=== PATIENT | female | born 1930 | race Caucasian/White ===

== ENCOUNTER 2018-08-21 18:49 | Observation (INO) | payer MEDICARE, OTHER ==
[~2018-08-21] VITALS: Ht 149.9 cm; Wt 70.4 kg
[~2018-08-21 18:49] MED LIST: CELEBREX100 MG PO; HYDROCHLOROTHIA25 MG PO; LOTREL 10-20 M1 EACH PO; LOW DOSE ASPIRI81 MG PO; OMEPRAZOLE40 MG PO; SYNTHROID PO; THERAGRAN-M PR1 EAC1 PO
[2018-08-21] MEDS ORDERED: NIFEDIPINE 10 MG CAP PO NR (20:00)
[2018-08-21 20:21] LABS: BASOPHILS # (AUTO) 0.1 (0.0-0.1); BASOPHILS % 0.4 % (0.0-1.0); EOSINOPHILS # (AUTO) 0.1 (0.0-0.4); EOSINOPHILS % 0.8 % (0.0-6.0); HEMATOCRIT 36.6 % (34.2-44.1); LYMPHOCYTES # (AUTO) 2.1 (1.0-3.2); MEAN CORPUSCULAR HEMOGLOBIN 27.5 pg (28-32); MEAN CORPUSCULAR HGB CONC 32.8 g/dL (31-35); MEAN CORPUSCULAR VOLUME 83.8 fL (81-99); MONOCYTES # (AUTO) 0.8 (0.2-0.8); MONOCYTES % 7.1 % (4.4-11.3); NEUTROPHILS # (AUTO) 8.5 (2.1-6.9); NEUTROPHILS % 73.3 % (38.7-80.0); PLATELET COUNT 257 x10e3/uL (140-360); RED BLOOD COUNT 4.37 x10e6/uL (3.6-5.1); RED CELL DISTRIBUTION WIDTH 14.6 % (11.7-14.4)
[2018-08-21 20:41] LABS: INR 0.97; PROTHROMBIN TIME 13.8 seconds (11.9-14.5)
[2018-08-21 20:42] LABS: PARTIAL THROMBOPLASTIN TIME 28.5 seconds (23.8-35.5)
[2018-08-21] MEDS ORDERED: LEVOTHYROXINE75 MCG PO (20:50)
[2018-08-21] MEDS ORDERED: PREDNISONE5 MG PO (20:50)
[2018-08-21] MEDS ORDERED: HYDROXYCHLOROQ200 MG PO (20:50)
[2018-08-21] MEDS ORDERED: CITALOPRAM HBR20 MG PO (20:50)
[2018-08-21] MEDS ORDERED: FUROSEMIDE20 MG PO (20:50)
[2018-08-21] MEDS ORDERED: ACETAMINOPHEN325 M1 PO (20:50)
[2018-08-21] MEDS ORDERED: POTASSIUM CHLO10 ME1 PO (20:50)
[2018-08-21] MEDS ORDERED: OMEPRAZOLE20 MG PO (20:50)
[2018-08-21] MEDS ORDERED: ASPIRIN 81 MG CHEW TAB PO STA (20:50)
[2018-08-21] MEDS ORDERED: LOPRESSOR25 MG PO (20:50)
[2018-08-21 20:51] LABS: ALBUMIN 4.1 g/dL (3.5-5.0); ALBUMIN/GLOBULIN RATIO 1.4 (0.8-2.0); ANION GAP 14.9 mmol/L (8-16); CALCIUM 9.6 mg/dL (8.4-10.2); CREATININE, SERUM 0.9 mg/dL (0.57-1.11); MAGNESIUM 2.4 MG/DL (1.3-2.1); POTASSIUM 3.9 mmol/L (3.5-5.1)
[2018-08-21 20:58] LABS: CREATINE KINASE MB 1.1 ng/mL (0-5.0)
--- NOTE | 2018-08-21 21:32 | Diagnostic Imaging Report ---
EXAMINATION: CHEST 2 VIEWS INDICATION: ^SOB, CHEST PAIN ^[id number] ^2014 ^Y COMPARISON: None FINDINGS: PA and lateral views TUBES and LINES: None. LUNGS: Lungs are well inflated. Central peribronchovascular thickening/cuffing. Minimal left basilar hazy opacification. PLEURA: No pleural effusion or pneumothorax. HEART AND MEDIASTINUM: The cardiac silhouette is borderline in size. Aorta is calcified. BONES AND SOFT TISSUES: No acute osseous lesion. Degenerative changes of spine. Lumbar spine posterior fusion hardware is partially visualized. Soft tissues are unremarkable. UPPER ABDOMEN: No free air under the diaphragm. IMPRESSION: Central peribronchovascular thickening/cuffing. Minimal left basilar hazy opacification, representing atelectasis and/or pneumonia in the appropriate clinical setting Signed by: Dr. Veto Pichardo MD on 08/21/2018 9:28 PM
[2018-08-21] MEDS ORDERED: ONDANSETRON HCL INJ 2MG/ML 2ML 2 MG/ML VIAL IV PRN (22:15)
[2018-08-21] MEDS ORDERED: NITROGLYCERIN 0.4 MG SUBL SL PRN (22:15)
--- OUTSIDE RECORDS SUMMARY | 2018-08-21 22:53 | XMS REPORT ---
Author Author [facility] Organization [facility] Address Unknown Phone Unavailable Care Team Providers Care Income Tax Expert Name Role Phone Florian BERUMEN Unavailable Unavailable Problems This patient has no known problems. Allergies, Adverse Reactions, Alerts This patient has no known allergies or adverse reactions. Medications This patient has no known medications. Results Test Description Test Time Test Comments Text Results Atomic Results Result Comments CHEST 2 VIEWS 2018-08-21 21:25:00 [facility] [address], [place] [address] Patient Name: NII GUADARRAMA MR #: [id number] : 1930 Age/Sex: 88/F Req #: [id number] Adm Physician: Ordered by: NAJMA BERUMEN MD Report #: [id number] Location: ER Room/Bed: Procedure: [id number] DX/CHEST 2 VIEWS Exam Date: 08/21/18 Exam Time: 2014 REPORT STATUS: Signed EXAMINATION: CHEST 2 VIEWS INDICATION: SOB, CHEST PAIN [id number] Y COMPARISON: None FINDINGS: PA and lateral views TUBES and LINES: None. LUNGS: Lungs are well inflated. Central peribronchovascular thickening/cuffing. Minimal left basilar hazy opacification. PLEURA: No pleural effusion or pneumothorax. HEART AND MEDIASTINUM: The cardiac silhouette is borderline in size. Aorta is calcified. BONES AND SOFT TISSUES: No acute osseous lesion. Degenerative changes of spine. Lumbar spine posterior fusion hardware is partially visualized. Soft tissues are unremarkable. UPPER ABDOMEN: No free air under the diaphragm. IMPRESSION: Central peribronchovascular thickening/cuffing. Minimal left basilar hazy opacification, representing atelectasis and/or pneumonia in the appropriate clinical setting Signed by: Dr. Veto Diamond MD on 08/21/2018 9:28 PM Dictated By: VETO DIAMOND MD 27 Transcribed By: NESTOR on 08/21/182127 COPY TO: NAJMA BERUMEN MD
[2018-08-22] VITALS (8 sets, daily range): BP systolic 134–214; BP diastolic 61–107
[2018-08-22] MEDS ORDERED: SODIUM CHLORIDE 0.9% 250ML 250 ML ONE (00:03)
--- NOTE | 2018-08-22 00:10 | NUR ---
IV IN LACF INFILTRATED. RESITED TO LEFT HAND WITH 22G X 2 STICKS, TOLERATED WELL. AWAKE ALERT SKIN W/D RESP NONLAB. NAD NOTED.
[2018-08-22] MEDS ORDERED: ASPIRIN 81 MG CHEW TAB ONE (00:15)
[2018-08-22] MEDS: CEFTRIAXONE SOD 1 GM/NS 50 ML 50 ML IV SCH ×3 (00:17→20:58)
[2018-08-22] MEDS: AZITHROMYCIN 500MG/NS 250 ML 250 ML IV SCH ×2 (00:33→10:55)
[2018-08-22 08:35] LABS: BASOPHILS # (AUTO) 0.1 (0.0-0.1); BASOPHILS % 0.5 % (0.0-1.0); EOSINOPHILS # (AUTO) 0.3 (0.0-0.4); EOSINOPHILS % 2.5 % (0.0-6.0); HEMATOCRIT 36.3 % (34.2-44.1); LYMPHOCYTES # (AUTO) 3.1 (1.0-3.2); LYMPHOCYTES % 29.2 % (18.0-39.1); MEAN CORPUSCULAR HEMOGLOBIN 27.3 pg (28-32); MEAN CORPUSCULAR HGB CONC 33.1 g/dL (31-35); MEAN CORPUSCULAR VOLUME 82.5 fL (81-99); MONOCYTES # (AUTO) 1.1 (0.2-0.8); MONOCYTES % 10.5 % (4.4-11.3); NEUTROPHILS % 56.9 % (38.7-80.0); PLATELET COUNT 244 x10e3/uL (140-360); RED CELL DISTRIBUTION WIDTH 14.4 % (11.7-14.4)
[2018-08-22 08:57] LABS: ALANINE AMINOTRANSFERASE 17 IU/L (0-55); ALBUMIN 3.7 g/dL (3.5-5.0); ALBUMIN/GLOBULIN RATIO 1.3 (0.8-2.0); ALKALINE PHOSPHATASE 67 IU/L (40-150); ANION GAP 12.1 mmol/L (8-16); BLOOD UREA NITROGEN 13 mg/dL (7-26); BUN/CREATININE RATIO 18 (6-25); CALCIUM 9.2 mg/dL (8.4-10.2); CARBON DIOXIDE 29 mmol/L (22-29); CHLORIDE 99 mmol/L (98-107); CHOL/HDL RATIO 2.2 (3.0-3.6); CHOLESTEROL 208 MD/DL (0-199); CREATININE, SERUM 0.74 mg/dL (0.57-1.11); EST GLOMERULAR FILTRATION RATE > 60 ML/MIN (60-); GLUCOSE 94 mg/dL (74-118); HDL CHOLESTEROL 96 MG/DL (40-60); LDL CHOLESTEROL 96 MG/DL (60-130); POTASSIUM 3.1 mmol/L (3.5-5.1); SODIUM 137 mmol/L (136-145); TRIGLYCERIDES 78 MG/DL (0-149)
[2018-08-22 08:59] LABS: CREATINE KINASE MB 1.4 ng/mL (0-5.0)
[2018-08-22] MEDS ORDERED: FAMOTIDINE 20 MG/2 ML VIAL IV SCH (09:00)
--- NOTE | 2018-08-22 10:48 | NUR ---
SOCIAL WORK INITIAL ASSESSMENT Behavioral Scientist to bedside to discuss plan of care with patient/family. CM/SW role and care transitions discussed. Anticipated discharge plan discussed along with duration of care. CM/SW discussed patients right to make decisions in care. CM/SW work hours given. Patient lives: IN APARTMENT UPSTAIRS BY SELF Admit/Transfer: VIA ED POA/Emergency contact: FORD SAWYER [phone] Current/Previous Home Health: REQUESTING PCP/Follow-up Care: FABIENNE Current/Previous DME: [facility] AND Florian [facility] Other Services: HAS APPOINTMENT FOR SEPTEMBER 15 Employment Status: RETIRED Areas of Concerns: NONE Referral Needs: HOME HEALTH Education Needs: NONE IMM/MCKINNEY given and signed (if applicable): UPON ADMISSION Goal for discharge: RETURN HOME CM/SW left business card at the bedside with contact information. Name and number was also written on the patients whiteboard. Patient verbalized understanding of discussion. CM will follow-up with ongoing discharge and transition of care needs.
[2018-08-22] MEDS: ASPIRIN 81 MG ENTERIC COATED PO SCH (10:55)
[2018-08-22] MEDS ORDERED: ACETAMINOPHEN 325 MG TAB PO PRN (14:30)
[2018-08-22] MEDS ORDERED: POTASSIUM CHLORIDE 10MEQ EA PO ONE ×2 (14:30→18:45)
--- NOTE | 2018-08-22 15:54 | NUR ---
SPOKE W DR. READ ABOUT HH FOR THE PT. AGREED PT MAY BENEFIT FROM HH. MET W THE PT AND FAMILY MEMBER AT THE BEDSIDE. CHOICE LETTER PROVIDED. REFERRAL WAS FAXED TO [facility] @ OFF: [phone] / FAX: [phone]
--- NOTE | 2018-08-22 16:46 | Diagnostic Imaging Report ---
EXAMINATION: CT scan of the chest without contrast. TECHNIQUE: Spiral CT images of the chest were performed from the lung apices to the level of the adrenal glands without IV or oral contrast material. Coronal and sagittal reformatted images were obtained. Dose modulation, iterative reconstruction and/or weight based adjustment of the mA/kV was utilized to reduce the radiation dose to as low as reasonably achievable. DLP: 483.93 mGy-cm COMPARISON: None. CLINICAL HISTORY:Shortness of breath DISCUSSION: LINES/TUBES: None. LUNGS AND AIRWAYS: The lungs are clear. No pulmonary nodules, masses or consolidation. Scarring in the left lung base and left apex. The airways are normal, without endobronchial lesions. PLEURA: Mild bilateral pleural effusions; right greater than left. HEART AND MEDIASTINUM: The thyroid gland is normal. The heart is enlarged. The pericardium is within normal limits. Aortic and coronary calcification. 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 Granulomatous calcification in the left hilum. LYMPH NODES: There is no mediastinal, hilar or axillary lymphadenopathy. Small mediastinal nodes likely are reactive. 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 The adrenal glands are normal. BONES AND SOFT TISSUES: Degenerative changes of the spine. There are rods and screws in the upper lumbar spine. IMPRESSION: 1. Small bilateral pleural effusions. No pulmonary consolidation. 2. 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 Signed by: Dr. Thomas Espinal DO on 08/22/2018 4:43 PM
--- NOTE | 2018-08-22 17:00 | Consultation ---
DATE OF CONSULTATION: 08/21/2018 REASON FOR CONSULTATION: Chest pain and AFib. HISTORY OF PRESENT ILLNESS: This is a pleasant 88-year-old female, who presented with chest pain. According to the patient, for the last 3 to 4 days, she was having chest tightness, shortness of breath, unable to breathe that she decided to come into the emergency room for evaluation. In the ER, she had a chest x-ray done that showed minimal left hazy opacification versus pneumonia and she was admitted for further evaluation. She also has a history of remote paroxysmal AFib and she was not anticoagulated, but was on a low-dose aspirin per Dr. Rodríguez. She denied any palpitation, any dizziness, any diaphoresis, any headache, nausea, or vomiting. Troponin x1 was negative. EKG showed normal sinus rhythm with first-degree AV block. PAST MEDICAL HISTORY: Hypothyroidism, paroxysmal AFib, rheumatoid arthritis, and hypertension. PAST SURGICAL HISTORY: Appendectomy, back surgery, cataract surgery, cholecystectomy, hysterectomy, and right shoulder surgery. FAMILY HISTORY: Noncontributory. SOCIAL HISTORY: No smoking. No drinking. She lives at home alone. ALLERGIES: SHE IS ALLERGIC TO CODEINE AND TRAMADOL. PHYSICAL EXAMINATION: VITAL SIGNS: Temperature 97, heart rate 74, blood pressure 134/61, respirations 18, oxygen saturation 95% on 2 L nasal cannula. GENERAL: She is awake, alert, and oriented x3. HEENT: Mucous membranes are moist. NECK: Supple. LUNGS: Bilateral with decreased breath sounds. CARDIOVASCULAR: S1, S2 present, but irregular. ABDOMEN: Soft. NEUROLOGIC: Intact. EXTREMITIES: With no edema. LABORATORY DATA: Sodium 143, potassium 3.9, chloride 103, CO2 of 29, BUN 19, creatinine 0.90, glucose 123. White blood cells 11.6, hemoglobin 12.0, hematocrit 36.6, platelets 257. PT 13.8, PTT 28.5, INR 0.97. IMPRESSION: 1. Chest pain. 2. Pneumonia. 3. Arrhythmias. 4. Hypothyroidism. ASSESSMENT AND PLAN: 1. She is pending echocardiogram to assess the LV and valve function. 2. We will get serial cardiac enzymes. 3. We will continue her home medication. 4. History of atrial fibrillation. 5. EKG showing arrhythmias with first-degree block. She is on beta-beatriz, we will continue the same. We will continue aspirin, nitrate, and antibiotic. Further cardiac workup pending clinical course. Thank you for this consultation. Dictated by Gini Gonzalez, REVENUE DIRECTOR MD MAYA Lucas/MODL /[id number]
[2018-08-22] MEDS: FLUTICASONE PROPIONATE NASAL SPRAY NS SCH ×2 (18:39→18:40)
[2018-08-22] MEDS: LORATADINE 10 MG TAB PO SCH (18:39)
[2018-08-22] MEDS: BENZONATATE 100 MG CAP PO SCH ×2 (18:40→23:56)
[2018-08-22] MEDS: HYDROXYCHLOROQUINE SULFATE 200 MG TAB PO SCH (18:40)
[2018-08-22 19:09] LABS: CREATINE KINASE MB 1.1 ng/mL (0-5.0)
[2018-08-22] MEDS: METOPROLOL TARTRATE 25 MG TAB PO SCH (20:56)
--- NOTE | 2018-08-22 23:16 | History and Physical ---
PRIMARY CARE PHYSICIAN: Dr. Paula Zamora. GLASS SETTER: Dr. Elio Inman. CHIEF COMPLAINT: Chest pain and shortness of breath and cough. HISTORY OF PRESENT ILLNESS: The patient is an 88-year-old female with multiple medical problems, including rheumatoid arthritis, paroxysmal atrial fibrillation, and hypertension, came in with a several-week history of increasing coughing and shortness of breath, especially with exertion and also experienced some atypical chest pain, especially with exertion as well. Chest pain is more associated with cough however per patient. She was prescribed some prednisone to see if she did get better. The patient came in because her symptoms did not improve, especially with exertional shortness of breath. The patient is otherwise stable. She does have some sinus congestion associated with nasal drip and along with upper respiratory symptom as well. PAST MEDICAL HISTORY: Rheumatoid arthritis, hypertension, paroxysmal atrial fibrillation, dependent edema of lower extremity, and hypothyroidism. PAST SURGICAL HISTORY: Cholecystectomy, cataract surgery, appendectomy, hysterectomy, lower back surgery, and cervical spine surgery. SOCIAL HISTORY: The patient does not smoke or use alcohol. No recreational drugs. ALLERGIES: TRAMADOL AND CODEINE. MEDICATIONS: Home medication list is reviewed. REVIEW OF SYSTEMS: Symptoms as per the above. PHYSICAL EXAMINATION: VITAL SIGNS: Temperature is 98, blood pressure 134/61, pulse rate is 74, and respirations 18. GENERAL: The patient is not in acute distress. She is awake. HEENT: Normocephalic and atraumatic. Anicteric. NECK: Supple grossly. PULMONARY: Diminished breath sounds with some coarses in both upper lower lung [place] without any wheezing however. CARDIOVASCULAR: S1 and S2. Regular rate and rhythm. ABDOMEN: Soft, nontender, and non-distention. EXTREMITIES: No gross cyanosis or edema. NEUROLOGIC: There is no gross focal deficit. LABORATORY DATA: Sodium is 137, potassium 3.1, chloride 99, bicarb 29, BUN 13, creatinine 0.7, and glucose 94. WBC is 10.6, hemoglobin 12, hematocrit 36.3, and platelets are 244. INR is 0.97. IMPRESSION: 1. Upper respiratory symptoms, most likely allergic rhinitis versus acute bronchitis and possible early pneumonia. 2. Exertional shortness of breath. We will need echocardiogram to assess. 3. Multiple chronic baseline problems. PLAN: Continue with current medication and home medication with some adjustment. Antibiotics for now. Claritin, Flonase, and Tessalon Perles along with medication for upper respiratory symptoms. Echocardiogram. CT of the chest without contrast. We will adjust the patient's medication, pending on further workup and evaluation. MD KEVIN Guthrie/WINSTON /[id number]
[2018-08-23] VITALS: BP 181/84
--- NOTE | 2018-08-23 01:34 | NUR ---
SPOKE WITH DR ODELL REGARDING ELEVATED BLOOD PRESSURE. RECEIVED ORDERS FOR PRN HYDRALIZINE.
[2018-08-23] MEDS ORDERED: HYDRALAZINE HCL 20 MG/ML VIAL IV PRN (01:45)
[2018-08-23 04:00] VITALS: BP 114/59
[2018-08-23 05:23] LABS: BASOPHILS # (AUTO) 0.1 (0.0-0.1); BASOPHILS % 0.5 % (0.0-1.0); EOSINOPHILS # (AUTO) 0.4 (0.0-0.4); EOSINOPHILS % 3.7 % (0.0-6.0); HEMATOCRIT 39.2 % (34.2-44.1); HEMOGLOBIN 12.9 g/dL (12.0-16.0); LYMPHOCYTES # (AUTO) 1.8 (1.0-3.2); LYMPHOCYTES % 18.3 % (18.0-39.1); MEAN CORPUSCULAR HGB CONC 32.9 g/dL (31-35); MONOCYTES # (AUTO) 1.2 (0.2-0.8); MONOCYTES % 11.8 % (4.4-11.3); NEUTROPHILS # (AUTO) 6.4 (2.1-6.9); NEUTROPHILS % 65.3 % (38.7-80.0); PLATELET COUNT 258 x10e3/uL (140-360); RED BLOOD COUNT 4.78 x10e6/uL (3.6-5.1); RED CELL DISTRIBUTION WIDTH 14.3 % (11.7-14.4)
[2018-08-23 05:45] LABS: ANION GAP 14.6 mmol/L (8-16); BLOOD UREA NITROGEN 15 mg/dL (7-26); BUN/CREATININE RATIO 18 (6-25); CALCIUM 9.3 mg/dL (8.4-10.2); CARBON DIOXIDE 26 mmol/L (22-29); CHLORIDE 102 mmol/L (98-107); CREATININE, SERUM 0.85 mg/dL (0.57-1.11); EST GLOMERULAR FILTRATION RATE > 60 ML/MIN (60-); GLUCOSE 102 mg/dL (74-118); POTASSIUM 3.6 mmol/L (3.5-5.1); SODIUM 139 mmol/L (136-145)
--- NOTE | 2018-08-23 07:00 | NUR ---
RECEIVED PATIENT RESTING IN BED. NO ACUTE DISTRESS NOTED. CALL LIGHT WITHIN REACH. BED IN THE LOWEST POSITION.
[2018-08-23 07:10] VITALS: BP 146/75
[2018-08-23 07:38] VITALS: BP 146/75
[2018-08-23] MEDS: AZITHROMYCIN 500MG/NS 250 ML 250 ML IV SCH (08:36)
[2018-08-23] MEDS: FLUTICASONE PROPIONATE NASAL SPRAY NS SCH (08:36)
[2018-08-23] MEDS: LORATADINE 10 MG TAB PO SCH (08:36)
[2018-08-23] MEDS: ASPIRIN 81 MG ENTERIC COATED PO SCH (08:36)
[2018-08-23] MEDS: BENZONATATE 100 MG CAP PO SCH (08:36)
[2018-08-23] MEDS: METOPROLOL TARTRATE 25 MG TAB PO SCH (08:36)
[2018-08-23] MEDS: HYDROXYCHLOROQUINE SULFATE 200 MG TAB PO SCH (08:36)
[2018-08-23] MEDS ORDERED: CITALOPRAM HYDROBROMIDE 20 MG TAB PO SCH (09:00)
[2018-08-23] MEDS ORDERED: LEVOTHYROXINE SODIUM 75 MCG TAB PO SCH (09:00)
[2018-08-23] MEDS ORDERED: PANTOPRAZOLE SOD 40 MG TABEC PO SCH ×2 (09:00)
[2018-08-23] MEDS ORDERED: PREDNISONE 5 MG TAB PO SCH (09:00)
--- NOTE | 2018-08-23 09:27 | NUR ---
HOME HEALTH DISCHARGE NOTE PATIENT ADDRESS WHERE SERVICE WILL BE RECEIVED: [facility] [place] [facility] [place] [address] [place] [address] PATIENT CONTACT NUMBER: [phone] NAME OF HOME HEALTH COMPANY: [employer] TELEPHONE/FAX NUMBER OF COMPANY: OFF: [phone] / FAX: [phone] ADDRESS OF COMPANY: [address] [place] [address] [id number], [place] [address] SERVICES TO RECEIVE: SN/PT/OT/[employer] DEVELOPER ANTICIPATED DATE SERVICES WILL BEGIN: 08/24/2018 Please call the company above if you have not received a call to schedule a home visit within 24 hours of discharge.
[2018-08-23] MEDS: CEFTRIAXONE SOD 1 GM/NS 50 ML 50 ML IV SCH (09:38)
--- NOTE | 2018-08-23 10:39 | NUR ---
RECEIVED DC ORDER FROM MD. PATIENT IS IN STABLE CONDITION. DENIES PAIN OR DISCOMFORT. HOME HEALTH SET UP BY CASE MANAGEMENT. IV LINE TO LEFT HAND DC'D WITH TIP INTACT, PRESSURE APPLIED TO SITE, NO BLEEDING NOTED. DISCHARGE TEACHING PROVIDED, PATIENT VERBALIZED UNDERSTANDING. ALL PERSONAL ITEMS AND DC FOLDER ON HAND. PATIENT ACCOMPANIED TO PRIVATE AUTO VIA WHEELCHAIR BY STAFF.
== END 2018-08-23 10:39 | disposition home health service (06) ==
LOC: ER 18:49 → ERHOLD 22:50 → IMCU 08-22 00:29
PROVIDERS: ADMIT Internal Medicine; ATTEND Internal Medicine
DX: R07.9 Chest pain, unspecified (principal); J06.9 Acute upper respiratory infection, unspecified; I10 Essential (primary) hypertension; I48.0 Paroxysmal atrial fibrillation; M06.9 Rheumatoid arthritis, unspecified; E03.9 Hypothyroidism, unspecified; Z88.5 Allergy status to narcotic agent
CPT/HCPCS: 36415 ×3; 71046; 71250; 80048; 80053 ×2; 80061; 82550 ×2; 82553 ×2; 83735; 84484 ×2; 85025 ×3; 85610; 85730; 87040; 93005; 93306; 99284; G0378 ×3; J0360; J0456 ×2; J0696 ×2; J2405; J7050; J7512; S0164